=== PATIENT | female | born 1985 | race African-American/Black ===

== ENCOUNTER 2021-12-11 10:05 | Outpatient (CLI) | payer OTHER ==
[2021-12-11 11:42] LABS: Hemoglobin 12.9 g/dL (12.0-15.5); Mean Corpuscular HGB CONC 34.6 g/dL (32.0-36.0); Mean Corpuscular Hemoglobin 29.7 pg (27.0-33.0); Mean Corpuscular Volume 85.7 fl (81.6-98.3); Mean Platelet Volume 10.4 fl (7.4-10.4); Platelet Count 411 10x3/uL (150-450); RBC Distribution Width 12.4 % (11.5-14.5); Red Blood Cell (RBC) Count 4.35 10x6/uL (3.90-5.03)
[2021-12-11 12:04] LABS: Anion Gap 14 mmol/L (10-20); BUN (Urea Nitrogen) 9 mg/dL (7.0-18.7); Calc. Creatinine Clearance 0 mL/min (70-130); Calcium 9.4 mg/dL (7.8-10.44); Carbon Dioxide 23 mmol/L (22-29); Chloride 105 mmol/L (98-107); Glucose 78 mg/dL (70-105); Potassium 4.3 mmol/L (3.5-5.1); Sodium 138 mmol/L (136-145)
[2021-12-11 17:56] LABS: SARS-CoV-2 PCR by NAA Not Detected (NotDetected)
== END 2021-12-11 10:06 | disposition home or self-care (01) ==
LOC: LABBT 10:05
PROVIDERS: ATTEND Neurological Surgery
DX: Z01.818 Encounter for other preprocedural examination (principal); M54.16 Radiculopathy, lumbar region; Z20.822 Contact with and (suspected) exposure to COVID-19
CPT/HCPCS: 80048; 85027; 93005; 93010; U0003; U0005

== ENCOUNTER 2021-12-16 06:55 | Day surgery (SDC) | payer OTHER ==
[2021-12-11 12:50] VITALS: BMI 30.9
[2021-12-16] MEDS ORDERED: Dexmedetomidine 200 MCG/2 ML VIAL ONE (09:13)
[2021-12-16] MEDS ORDERED: Fentanyl 250 MCG/5 ML VIAL ONE ×2 (09:13→11:19)
[2021-12-16] MEDS ORDERED: Midazolam HCl 2 mg/2 ml Vial ONE (09:13)
[2021-12-16] MEDS ORDERED: ceFAZolin 2 GM/DEX 5% 100 ML BAG ONE (09:25)
[2021-12-16] MEDS ORDERED: Ondansetron PF 4 MG/2 ML Vial ONE ×3 (09:40→14:15)
[2021-12-16] MEDS ORDERED: Rocuronium Bromide 10 MG/ML (10ML VIAL) ONE (09:40)
[2021-12-16] MEDS ORDERED: GLYCOPYRROLATE/PF 0.2 MG/ML VIAL ONE (09:40)
[2021-12-16] MEDS ORDERED: PROPOFOL 200 MG/20 ML VIAL ONE (09:40)
[2021-12-16] MEDS ORDERED: Dexamethasone 20 MG/5 ML VIAL ONE (09:40)
[2021-12-16] MEDS ORDERED: Lidocaine 1% PF 5 ML VIAL ONE (09:40)
[2021-12-16] MEDS ORDERED: Ketorolac Tromethamine 30 MG/ML VIAL ONE (09:40)
[2021-12-16] MEDS ORDERED: SUGAMMADEX SODIUM 200 MG/2 ML VIAL ONE (10:16)
[2021-12-16] MEDS ORDERED: Promethazine HCl 25 MG/ML VIAL ONE (12:13)
[2021-12-16] MEDS ORDERED: Acetaminophen/Codeine 30-300mg Tablet ONE (13:11)
[2021-12-16] MEDS ORDERED: Cyclobenzaprine 10 MG TAB ONE (13:41)
== END 2021-12-16 15:45 | disposition home or self-care (01) ==
LOC: SDC 06:55
PROVIDERS: ATTEND Neurological Surgery
PROC: 0SG00AJ Fusion of Lumbar Vertebral Joint with Interbody Fusion Device, Posterior Approach, Anterior Column, Open Approach (ICD-10-PCS; principal; 2021-12-16)
DX: M51.16 Intervertebral disc disorders with radiculopathy, lumbar region (principal); E66.9 Obesity, unspecified; Z68.31 Body mass index [BMI] 31.0-31.9, adult
CPT/HCPCS: 76000; C1713; C1768; C1776; J1100; J1885; J2250; J2405; J2550; J2704; J3010; J3370; J3490